=== PATIENT | female | born 1985 | race Caucasian/White ===

== ENCOUNTER 2017-07-07 17:01 | Emergency (ER) | payer OTHER, MEDICAID ==
[~2017-07-07] VITALS: Ht 167.6 cm; Wt 189.6 kg
[~2017-07-07 17:01] MED LIST: ACETAMINOPHEN-1 EAC1 PO; ACID CONTROL75 MG PO; ALBUTEROL2.5 MG/31 INH; ANTIVERT25 MG PO; BACTRIM DS TAB1 EAC1 PO; BENADRYL25 MG PO; BENTYL 20 MG TA20 M1 PO; BENTYL10 MG PO; BUSPIRONE HCL10 MG PO; DARVOCET-N 1001 EACH PO; FLEXERIL PO; HYDROCODONE-AP1 EAC6 PO; IBUPROFEN 800800 M1 PO; IMITREX4 MG/0.5 M SQ; INDOMETHACIN 2525 MG PO; IRON236 MG PO; LIDOCAINE VISC100 ML PO; MAGOX 400400 MG; MEDROLDOSEPACK PO; METFORMIN HCL500 MG PO; NAPROSYN250 MG PO; NAPROSYN375 MG PO; NOHOMEMEDICATIONS; NORCO 5-325 TA1 EACH PO; ONDANSETRON HCL4 M2 PO; PREDNISONE 20 M20 M1 PO; PREVACID 30MG C30 M1 PO; PROAIR HFA8.5 GM INH; PROMETHAZINE12.5 M1 PO; PROTONIX40 MG PO; RIZATRIPTAN10 MG PO; ROBAXIN 750 MG750 M1; SERTRALINE HCL25 M1 PO; TOPAMAX 100 MG100 MG; TRIAMCINOLONE A80 G2 TOP; TRINATE TABLET1 TAB; TRINATE TABLET1 TAB PO; VENTOLIN HFA 1818 GM; VENTOLIN HFA 1818 GM INH; VERAPAMIL E.R240 M1; VISTARIL 25 MG25 M1; VIT D3 PO; ZANTAC 150MG T150 MG PO; ZOFRAN ODT4 MG PO; ZPAK PO
[2017-07-07] MEDS ORDERED: ACETAMINOPHEN-1 EAC1 PO (18:18)
[2017-07-07] MEDS ORDERED: MOBIC15 MG PO (18:18)
[2017-07-07 18:50] VITALS: BP 142/62
== END 2017-07-07 18:51 | disposition home or self-care (01) ==
LOC: M.ERS 17:01
DX: M79.671 Pain in right foot (principal); M79.89 Other specified soft tissue disorders; K21.9 Gastro-esophageal reflux disease without esophagitis; M19.90 Unspecified osteoarthritis, unspecified site; F32.9 Major depressive disorder, single episode, unspecified; F41.9 Anxiety disorder, unspecified; G43.909 Migraine, unspecified, not intractable, without status migrainosus; E28.2 Polycystic ovarian syndrome; Z86.2 Personal history of diseases of the blood and blood-forming organs and certain disorders involving the immune mechanism; Z86.14 Personal history of Methicillin resistant Staphylococcus aureus infection

== ENCOUNTER 2017-07-24 22:30 | Emergency (ER) | payer OTHER, MEDICAID ==
[~2017-07-24] VITALS: Ht 167.6 cm; Wt 191.9 kg
[~2017-07-24 22:30] MED LIST changes: +MOBIC15 MG PO
[2017-07-24 23:32] LABS: ABSOLUTE BASOPHILS 0.1 thou/uL (0.0-0.2); ABSOLUTE EOSINOPHILS 0.1 thou/uL (0.0-0.7); ABSOLUTE LYMPHOCYTES 1.6 thou/uL (0.8-5.3); ABSOLUTE MONOCYTES 0.5 thou/uL (0.0-1.2); ABSOLUTE NEUTROPHILS 10.7 thou/uL (1.6-8.1); BASOPHILS 0.5 %; EOSINOPHILS 0.5 %; HEMATOCRIT 34.4 % (37.0-47.0); HEMOGLOBIN 11.2 gm/dL (12.0-15.0); LYMPHOCYTES 12.5 %; MCH 25.1 pg (26.0-34.0); MCHC 32.6 g/dL (28.0-37.0); MONOCYTES 3.7 %; MPV 8.3 fl. (7.2-11.1); NUCLEATED RBCS 0 /100WBC; PLATELET COUNT* 296 thou/uL (150-400); POLYS 82.8 %; RBC 4.46 mil/uL (4.20-5.00); RDW-CV 16.3 % (10.5-14.5); WBC 12.9 thou/uL (4.0-11.0)
[2017-07-24 23:34] LABS: URINE BILIRUBIN NEGATIVE (Negative); URINE BLOOD 3+ (Negative); URINE CLARITY CLEAR; URINE COLOR YELLOW; URINE GLUCOSE-RANDOM NEGATIVE (Negative); URINE KETONES NEGATIVE (Negative); URINE LEUKOCYTES-REFLEX NEGATIVE (Negative); URINE NITRITE-REFLEX NEGATIVE (Negative); URINE PROTEIN NEGATIVE (Negative); URINE SPECIFIC GRAVITY 1.015 (1.005-1.030); URINE UROBILINOGEN 0.2 E.U./dl (0.2-1.0)
[2017-07-24 23:41] LABS: ANION GAP 7 mmol/L (7-16); BUN 11 mg/dL (7-18); CALCIUM 8.8 mg/dL (8.5-10.1); CHLORIDE 104 mmol/L (98-107); CO2 28 mmol/L (21-32); CREATININE 0.8 mg/dL (0.6-1.3); GLUCOSE 139 mg/dL (70-99); POTASSIUM 4.5 mmol/L (3.5-5.1); SODIUM 139 mmol/L (136-145)
[2017-07-24 23:48] LABS: ALBUMIN 3.2 g/dL (3.4-5.0); ALKALINE PHOSPHATASE 87 U/L (46-116); LIPASE 108 U/L (73-393); SGOT 15 U/L (15-37); SGPT 25 U/L (30-65); TOTAL BILIRUBIN 0.2 mg/dL (<0.1-1.0); TROPONIN-I LEVEL <0.06 ng/mL (<0.06)
[2017-07-24 23:52] LABS: BACTERIA-REFLEX 1-9 Few /HPF (None Seen); CASTS None Seen /LPF (None Seen); CRYSTALS None Seen /LPF (None Seen); MUCUS 0-3 Light strn/LPF (None Seen); SQUAMOUS 0-3 Few /LPF (0-3); URINE RBC >20 Many /HPF (0-2); URINE WBC-REFLEX None Seen /HPF (0-5)
[2017-07-25] MEDS ORDERED: BENTYL 20 MG TA20 M1 PO (00:37)
[2017-07-25] MEDS ORDERED: ZOFRAN4 MG PO (00:37)
[2017-07-25] MEDS ORDERED: REGLAN 10 MG TA10 MG PO (00:37)
[2017-07-25] MEDS ORDERED: CARAFATE 1 GM TA1 GM PO (00:37)
[2017-07-25 01:01] VITALS: BP 149/63
--- NOTE | 2017-07-25 15:59 | EKG ---
[place] [address] ELECTROCARDIOGRAM REPORT Name: IRA CARRASCO Room: [facility]#: [id number] Admission: 07/24/17 Attend Phys: Discharge: 07/25/17 Date of : 87 Report #: [id number] THIS REPORT FOR: //name// [facility] ED Test Date: 2017-07-24 Test Time: 22:38:45 Pat Name: IRA LUNA Department: Room: Gender: F Analysis Consultant: VIRGILIO : 1985 Requested By: Fab May Order Number: [id number] MD: Isaias Thakur Measurements Intervals [place] Rate: 87 P: 31 MS: 172 QRS: 27 QRSD: 85 T: 0 QT: 350 QTc: 421 Interpretive Statements Sinus rhythm Probable left atrial enlargement Borderline ST elevation, lateral leads Compared to ECG 06/25/2016 01:18:16 ST (T wave) deviation now present Electronically Signed On 07-25-2017 15:59:45 CDT by Isaias Thakur [email or web address] <ELECTRONICALLY SIGNED> By: Isaias Thakur MD, FACC 07/25/17 1559 37 37 Isaias Thakur MD, [facility] /EPI
== END 2017-07-25 01:03 | disposition home or self-care (01) ==
LOC: M.ERS 22:30
PROVIDERS: Nurse Practitioner Family
DX: R07.89 Other chest pain (principal); R10.13 Epigastric pain; K21.9 Gastro-esophageal reflux disease without esophagitis; M19.90 Unspecified osteoarthritis, unspecified site; F32.9 Major depressive disorder, single episode, unspecified; F41.9 Anxiety disorder, unspecified; G43.909 Migraine, unspecified, not intractable, without status migrainosus; E28.2 Polycystic ovarian syndrome; Z86.14 Personal history of Methicillin resistant Staphylococcus aureus infection

== ENCOUNTER 2017-08-04 22:29 | Emergency (ER) | payer OTHER, MEDICAID ==
[~2017-08-04] VITALS: Ht 167.6 cm; Wt 191.9 kg
[~2017-08-04 22:29] MED LIST changes: +CARAFATE 1 GM TA1 GM PO; +REGLAN 10 MG TA10 MG PO; +ZOFRAN4 MG PO
[2017-08-04 23:18] LABS: ABSOLUTE BASOPHILS 0.1 thou/uL (0.0-0.2); ABSOLUTE EOSINOPHILS 0.2 thou/uL (0.0-0.7); ABSOLUTE LYMPHOCYTES 2.8 thou/uL (0.8-5.3); ABSOLUTE MONOCYTES 0.5 thou/uL (0.0-1.2); ABSOLUTE NEUTROPHILS 5.2 thou/uL (1.6-8.1); BASOPHILS 0.8 %; EOSINOPHILS 2.3 %; HEMATOCRIT 32.8 % (37.0-47.0); HEMOGLOBIN 10.7 gm/dL (12.0-15.0); MCH 24.9 pg (26.0-34.0); MCHC 32.5 g/dL (28.0-37.0); MCV 76.6 fL (80.0-100.0); MONOCYTES 5.7 %; MPV 8.2 fl. (7.2-11.1); NUCLEATED RBCS 0 /100WBC; PLATELET COUNT* 268 thou/uL (150-400); POLYS 59.2 %; RBC 4.29 mil/uL (4.20-5.00); RDW-CV 16.8 % (10.5-14.5); WBC 8.8 thou/uL (4.0-11.0)
[2017-08-04 23:48] LABS: ALBUMIN 3.3 g/dL (3.4-5.0); ALKALINE PHOSPHATASE 87 U/L (46-116); ANION GAP 11 mmol/L (7-16); BUN 9 mg/dL (7-18); CALCIUM 8.8 mg/dL (8.5-10.1); CHLORIDE 107 mmol/L (98-107); CO2 25 mmol/L (21-32); CREATININE 0.8 mg/dL (0.6-1.3); GLUCOSE 115 mg/dL (70-99); LIPASE 90 U/L (73-393); POTASSIUM 3.5 mmol/L (3.5-5.1); SGOT 15 U/L (15-37); SGPT 23 U/L (30-65); SODIUM 143 mmol/L (136-145); TOTAL BILIRUBIN 0.2 mg/dL (<0.1-1.0); TOTAL PROTEIN 6.9 g/dL (6.4-8.2); TROPONIN-I LEVEL <0.06 ng/mL (<0.06)
[2017-08-04 23:52] LABS: URINE BILIRUBIN NEGATIVE (Negative); URINE BLOOD 2+ (Negative); URINE CLARITY CLEAR; URINE COLOR YELLOW; URINE GLUCOSE-RANDOM NEGATIVE (Negative); URINE KETONES NEGATIVE (Negative); URINE LEUKOCYTES-REFLEX NEGATIVE (Negative); URINE NITRITE-REFLEX NEGATIVE (Negative); URINE PROTEIN NEGATIVE (Negative); URINE UROBILINOGEN 0.2 E.U./dl (0.2-1.0)
[2017-08-05 00:01] LABS: CASTS None Seen /LPF (None Seen); CRYSTALS None Seen /LPF (None Seen); MUCUS 0-3 Light strn/LPF (None Seen); SQUAMOUS 0-3 Few /LPF (0-3)
[2017-08-05 00:11] LABS: URINE WBC-REFLEX 0-5 Rare /HPF (0-5)
[2017-08-05] MEDS ORDERED: NORCO 5-325 TA1 EACH PO (01:11)
[2017-08-05 01:26] VITALS: BP 100/51
--- NOTE | 2017-08-05 11:01 | EKG ---
[place] [address] ELECTROCARDIOGRAM REPORT Name: IRA CARRASCO Room: [facility]#: [id number] Admission: 08/04/17 Attend Phys: Discharge: 08/05/17 Date of : [birth year] Report #: [id number] THIS REPORT FOR: //name// [facility] ED Test Date: 2017-08-05 Test Time: 00:09:25 Pat Name: IRA CARRASCO Department: Room: Gender: F General Warehouse Associate: VIRGILIO Burnette : 1985 Requested By: Cristo Timmons Order Number: [id number] MD: Mick Bourne Measurements Intervals [place] Rate: 83 P: 45 [place]: 172 QRS: 37 QRSD: 98 T: 10 QT: 366 QTc: 430 Interpretive Statements Sinus rhythm Compared to ECG 07/24/2017 22:38:45 no change Electronically Signed On 08-05-2017 11:01:25 CDT by Mick Bourne [email or web address] <ELECTRONICALLY SIGNED> By: Mick Bourne MD, [facility] 08/05/17 1101 0009 0009 Mick Bourne MD, FACC /EPI
== END 2017-08-05 01:26 | disposition home or self-care (01) ==
LOC: M.ERS 22:29
PROVIDERS: Emergency Medicine Emergency Medical Services
DX: R10.11 Right upper quadrant pain (principal); R10.13 Epigastric pain; K21.9 Gastro-esophageal reflux disease without esophagitis; M19.90 Unspecified osteoarthritis, unspecified site; F32.9 Major depressive disorder, single episode, unspecified; F41.9 Anxiety disorder, unspecified; E28.2 Polycystic ovarian syndrome; G43.909 Migraine, unspecified, not intractable, without status migrainosus; Z86.14 Personal history of Methicillin resistant Staphylococcus aureus infection

== ENCOUNTER 2018-01-14 22:54 | Emergency (ER) | payer OTHER, MEDICAID ==
[~2018-01-14] VITALS: Ht 167.6 cm; Wt 190.7 kg
[2018-01-14] MEDS ORDERED: OMEPRAZOLE40 MG PO (23:11)
[2018-01-14] MEDS ORDERED: RANITIDINE 150150 M1 PO (23:12)
[2018-01-14] MEDS ORDERED: ROBAXIN 750 MG750 M1 PO (23:14)
[2018-01-14] MEDS ORDERED: ZANTAC 150MG T150 MG PO (23:15)
[2018-01-14] MEDS ORDERED: TORADOL 10 MG T10 MG PO (23:56)
[2018-01-14] MEDS ORDERED: NORCO 5-325 TA1 EACH PO (23:56)
[2018-01-15 00:31] VITALS: BP 147/79
== END 2018-01-15 00:32 | disposition home or self-care (01) ==
LOC: M.ERS 22:54
DX: S39.012A Strain of muscle, fascia and tendon of lower back, initial encounter (principal); K21.9 Gastro-esophageal reflux disease without esophagitis; M19.90 Unspecified osteoarthritis, unspecified site; F32.9 Major depressive disorder, single episode, unspecified; F41.9 Anxiety disorder, unspecified; G43.909 Migraine, unspecified, not intractable, without status migrainosus; Z86.2 Personal history of diseases of the blood and blood-forming organs and certain disorders involving the immune mechanism; Z86.14 Personal history of Methicillin resistant Staphylococcus aureus infection; V89.2XXA Person injured in unspecified motor-vehicle accident, traffic, initial encounter; Y93.89 Activity, other specified; Y92.89 Other specified places as the place of occurrence of the external cause; Y99.8 Other external cause status

== ENCOUNTER → 2018-04-07 | Day surgery (SDC) | payer OTHER, MEDICAID ==
[~2018-04-07] MED LIST changes: +BUSPIRONE HCL7.5 MG PO; +OMEPRAZOLE40 MG PO; +RANITIDINE 150150 M1 PO; +ROBAXIN 750 MG750 M1 PO; +SERTRALINE HCL50 MG PO; +TORADOL 10 MG T10 MG PO; +VITAMIN D22000 UNIT PO; +ZANTAC300 MG PO
[2018-04-07 08:26] LABS: HEMATOCRIT 31.2 % (37.0-47.0); HEMOGLOBIN 10.1 gm/dL (12.0-15.0); MCH 24.1 pg (26.0-34.0); MCHC 32.5 g/dL (28.0-37.0); MCV 74.3 fL (80.0-100.0); MPV 7.9 fl. (7.2-11.1); RBC 4.2 mil/uL (4.20-5.00); WBC 7.4 thou/uL (4.0-11.0)
[2018-04-07 08:42] LABS: CALCIUM 8.2 mg/dL (8.5-10.1); CREATININE 0.8 mg/dL (0.6-1.3); POTASSIUM 4.2 mmol/L (3.5-5.1)
--- NOTE | 2018-04-07 13:50 | EKG ---
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
--- NOTE | 2018-04-10 17:07 | PATH ---
[facility] [address] [place] [address] PATHOLOGY RPT PROCEDURE Name: IRA CARRASCO [id number] Admission: 04/07/18 Date of : 87 Discharge: Report #: [id number] Path Case #: [id number] [facility] Accession Number: [id number] . 01 Material submitted: . GASTRIC BIOPSY FOR H-PYLORI . 01 Clinical history: . Upper abdominal pain, nausea, heartburn . 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 (GLORIA/db; 04/10/2018) LBQ/04/10/2018 . 02 Comment: Special stain: H. pylori immuno . 02 Electronically signed: . Vinayak Murphy MD, Pathologist NPI- [id number] . 01 Gross description: . Received in formalin labeled "Taurus, Ira, gastric BX for H. pylori," are 3 segments of tapia soft tissue measuring 0.9 x 0.6 x 0.2 cm in aggregate dimensions and ranging from 0.2 to 0.5 cm in maximum dimension. The specimen is submitted entirely in cassette A1. (TSD; 04/07/2018) TOB/TOB . 02 Pathologist provided ICD-10: K29.50 . 02 CPT . 003891, G88404 Specimen Comment: A courtesy copy of this report has been sent to Specimen Comment: [phone]. Specimen Comment: Report sent to Performed at: [address], [place] [id number] MD Lang Escalera MD Phone: [phone] Performed at: 02 [facility] [address], [place], [place] [id number] MD Vinayak Murphy MD Phone: [phone]
== END | disposition home or self-care (01) ==
LOC: M.SUR 06:34
PROVIDERS: Internal Medicine Gastroenterology
DX: K29.50 Unspecified chronic gastritis without bleeding (principal); K21.9 Gastro-esophageal reflux disease without esophagitis; G43.909 Migraine, unspecified, not intractable, without status migrainosus; F32.9 Major depressive disorder, single episode, unspecified; F41.9 Anxiety disorder, unspecified; Z79.899 Other long term (current) drug therapy; Z98.890 Other specified postprocedural states; Z86.73 Personal history of transient ischemic attack (TIA), and cerebral infarction without residual deficits

== ENCOUNTER 2018-11-28 14:37 | Emergency (ER) | payer OTHER, MEDICAID ==
[~2018-11-28] VITALS: Ht 167.6 cm; Wt 186.9 kg
[2018-11-28] MEDS ORDERED: CENTRUM SILVER1 EAC4 PO (14:47)
[2018-11-28] MEDS ORDERED: IRON325 PO (14:48)
[2018-11-28 15:24] LABS: ABSOLUTE BASOPHILS 0.1 thou/uL (0.0-0.2); ABSOLUTE EOSINOPHILS 0.2 thou/uL (0.0-0.7); ABSOLUTE LYMPHOCYTES 1.7 thou/uL (0.8-5.3); ABSOLUTE MONOCYTES 0.5 thou/uL (0.0-1.2); ABSOLUTE NEUTROPHILS 3.3 thou/uL (1.6-8.1); BASOPHILS 1.2 %; EOSINOPHILS 3.1 %; HEMATOCRIT 32.5 % (37.0-47.0); HEMOGLOBIN 10.6 gm/dL (12.0-15.0); LYMPHOCYTES 30.1 %; MCH 25.1 pg (26.0-34.0); MCHC 32.7 g/dL (28.0-37.0); MCV 76.7 fL (80.0-100.0); MONOCYTES 8.7 %; MPV 8.6 fl. (7.2-11.1); NUCLEATED RBCS 0 /100WBC; PLATELET COUNT* 251 thou/uL (150-400); POLYS 56.9 %; RBC 4.23 mil/uL (4.20-5.00); RDW-CV 17.8 % (10.5-14.5); WBC 5.8 thou/uL (4.0-11.0)
[2018-11-28 15:41] LABS: APTT 24.7 Seconds (25.0-31.3); PROTIME 10.6 Seconds (9.20-11.50)
[2018-11-28 15:42] LABS: ANION GAP 7 mmol/L (7-16); BUN 8 mg/dL (7-18); CALCIUM 8.6 mg/dL (8.5-10.1); CHLORIDE 106 mmol/L (98-107); CO2 28 mmol/L (21-32); CREATININE 0.8 mg/dL (0.6-1.3); GLUCOSE 112 mg/dL (70-99); POTASSIUM 3.8 mmol/L (3.5-5.1); SODIUM 141 mmol/L (136-145)
[2018-11-28 15:54] LABS: ALBUMIN 3.2 g/dL (3.4-5.0); ALKALINE PHOSPHATASE 92 U/L (46-116); CK-MB MASS 1.7 ng/mL (<0.5-3.6); LIPASE 79 U/L (73-393); NT-PRO BRAIN NAT PEPTIDE 111 pg/mL (<300); SGOT 21 U/L (15-37); SGPT 27 U/L (30-65); TOTAL BILIRUBIN 0.2 mg/dL (<0.1-1.0); TOTAL PROTEIN 6.5 g/dL (6.4-8.2); TROPONIN-I LEVEL <0.06 ng/mL (<0.06)
[2018-11-28] MEDS ORDERED: CYCLOBENZAPRINE5 MG PO (16:34)
[2018-11-28] MEDS ORDERED: NAPROSYN500 M1 PO (16:34)
[2018-11-28] MEDS ORDERED: NORCO 5-325 TA1 EAC1 PO (16:34)
[2018-11-28 16:46] VITALS: BP 104/43
--- NOTE | 2018-11-29 10:20 | EKG ---
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: : 1985 Requested By: Leonidas Adler Order Number: [id number] MD: Mick Bourne Measurements Intervals [place] Rate: 92 P: 15 [place]: 169 QRS: 21 QRSD: 91 T: 11 QT: 342 QTc: 424 Interpretive Statements Sinus rhythm Probable left atrial enlargement Baseline wander in lead(s) II Compared to ECG 04/07/2018 07:36:09 No significant changes Electronically Signed On 11-29-2018 10:19:56 CDT by Mick Bourne [email or web address] <ELECTRONICALLY SIGNED> By: Mick Bourne MD, [facility] 11/29/18 1019 1445 1445 Mick Bourne MD, [facility] /EPI
== END 2018-11-28 16:46 | disposition home or self-care (01) ==
LOC: M.ERS 14:37
PROVIDERS: Emergency Medicine
DX: R07.89 Other chest pain (principal); K21.9 Gastro-esophageal reflux disease without esophagitis; M19.90 Unspecified osteoarthritis, unspecified site; F32.9 Major depressive disorder, single episode, unspecified; F41.9 Anxiety disorder, unspecified; G43.909 Migraine, unspecified, not intractable, without status migrainosus; Z86.14 Personal history of Methicillin resistant Staphylococcus aureus infection; Z98.890 Other specified postprocedural states

== ENCOUNTER 2019-12-20 17:05 | Emergency (ER) | payer OTHER, MEDICAID ==
[~2019-12-20] VITALS: Ht 167.6 cm; Wt 113.4 kg
[~2019-12-20 17:05] MED LIST changes: +CENTRUM SILVER1 EAC4 PO; +CYCLOBENZAPRINE5 MG PO; +IRON325 PO; +NAPROSYN500 M1 PO; +NORCO 5-325 TA1 EAC1 PO
[2019-12-20] MEDS ORDERED: MAGNESIUM250 M1 PO (17:15)
[2019-12-20] MEDS ORDERED: VERAPAMIL ER120 MG PO (17:16)
[2019-12-20] MEDS ORDERED: SERTRALINE HCL100 MG PO (17:16)
[2019-12-20] MEDS ORDERED: NORCO 5-325 TA1 EAC2 PO (18:04)
[2019-12-20 18:18] VITALS: BP 120/70
--- NOTE | 2019-12-21 10:35 | EKG ---
[place] [address] ELECTROCARDIOGRAM REPORT Name: IRA CARRASCO [id number] Admission: 12/20/19 Attend Phys: Discharge: 12/20/19 Date of : 87 Date of Service: 12/20/19 1710 Report #: [id number] THIS REPORT FOR: //name// [facility] ED Test Date: 2019-12-20 Test Time: 17:10:57 Pat Name: IRA CARRASCO Department: Room: Gender: F Papier Mache Molder: : 1985 Requested By: Steven Tom Order Number: [id number] MD: Sawyer Rodriguez Measurements Intervals [place] Rate: 62 P: 53 [place]: 158 QRS: 34 QRSD: 107 T: 34 QT: 387 QTc: 393 Interpretive Statements Sinus rhythm Ventricular premature complex Baseline wander in lead(s) V3 Compared to ECG 11/28/2018 14:45:32 Ventricular premature complex(es) now present Electronically Signed On 12-21-2019 10:34:49 CDT by Sawyer Rodriguez [email or web address] <ELECTRONICALLY SIGNED> By: Sawyer Rodriguez MD, [facility] 12/21/19 1034 1710 1710 Sawyer Rodriguez MD, [facility] /EPI
== END 2019-12-20 18:18 | disposition home or self-care (01) ==
LOC: M.ERS 17:05
DX: M62.838 Other muscle spasm (principal); M25.511 Pain in right shoulder; K21.9 Gastro-esophageal reflux disease without esophagitis; M19.90 Unspecified osteoarthritis, unspecified site; G43.909 Migraine, unspecified, not intractable, without status migrainosus; Z98.890 Other specified postprocedural states; Z86.2 Personal history of diseases of the blood and blood-forming organs and certain disorders involving the immune mechanism; Z86.14 Personal history of Methicillin resistant Staphylococcus aureus infection

== ENCOUNTER 2019-12-27 17:36 | Inpatient (IN) | payer OTHER, MEDICAID ==
[~2019-12-27] VITALS: Ht 167.6 cm; Wt 113.8 kg
[~2019-12-27 17:36] MED LIST changes: +MAGNESIUM250 M1 PO; +NORCO 5-325 TA1 EAC2 PO; +SERTRALINE HCL100 MG PO; +VERAPAMIL ER120 MG PO
[2019-12-27 17:38] VITALS: BP 111/77
[2019-12-27 18:36] LABS: ABSOLUTE BASOPHILS 0.1 thou/uL (0.0-0.2); ABSOLUTE EOSINOPHILS 0.2 thou/uL (0.0-0.7); ABSOLUTE LYMPHOCYTES 2.3 thou/uL (0.8-5.3); ABSOLUTE MONOCYTES 0.5 thou/uL (0.0-1.2); ABSOLUTE NEUTROPHILS 3.6 thou/uL (1.6-8.1); BASOPHILS 0.8 %; EOSINOPHILS 2.4 %; HEMATOCRIT 35.7 % (37.0-47.0); HEMOGLOBIN 12.4 gm/dL (12.0-15.0); LYMPHOCYTES 35.3 %; MCH 29.2 pg (26.0-34.0); MCHC 34.8 g/dL (28.0-37.0); MCV 83.9 fL (80.0-100.0); MONOCYTES 6.9 %; NUCLEATED RBCS 0 /100WBC; PLATELET COUNT* 220 thou/uL (150-400); POLYS 54.6 %; RBC 4.25 mil/uL (4.20-5.00); RDW-CV 14.8 % (10.5-14.5); WBC 6.5 thou/uL (4.0-11.0)
[2019-12-27 18:44] LABS: INR 1.1
[2019-12-27 18:50] LABS: CALCIUM 8.4 mg/dL (8.5-10.1); CREATININE 0.7 mg/dL (0.6-1.3); POTASSIUM 3.4 mmol/L (3.5-5.1)
[2019-12-27 18:55] LABS: ALBUMIN 3.2 g/dL (3.4-5.0); TOTAL BILIRUBIN 0.3 mg/dL (<0.1-1.0); TOTAL PROTEIN 6.4 g/dL (6.4-8.2)
[2019-12-27 21:15] VITALS: BP 105/57
[2019-12-28] VITALS: BP 91/74
[2019-12-28 01:19] LABS: CHOLESTEROL 115 mg/dL (<200); HDL CHOLESTEROL 28 mg/dL (>40); LDL CHOLESTEROL 71 mg/dL (<100); TC:HDL 4.1 Ratio (Not establshd); TRIGLYCERIDE 81 mg/dL (<150); VLDL 16 mg/dL (<40)
[2019-12-28 01:20] LABS: SERUM ASSESSMENT CLEAR
[2019-12-28 04:00] VITALS: BP 133/74
[2019-12-28 08:00] VITALS: BP 113/64
--- NOTE | 2019-12-28 10:10 | EKG ---
[place] [address] ELECTROCARDIOGRAM REPORT Name: IRA CARRASCO Room: [address] ADM IN .R.#: [id number] Admission: 12/28/19 Attend Phys: Rich Atkins Discharge: Date of : 87 Date of Service: 12/27/19 182 Report #: [id number] THIS REPORT FOR: //name// [facility] ED Test Date: 2019-12-27 Test Time: 18:21:57 Pat Name: IRA CARRASCO Department: Room: [facility] Gender: F Chief Of Staff: LEEANN : 1985 Requested By: Cristo Timmons Order Number: [id number] MD: Mick Bourne Measurements Intervals [place] Rate: 66 P: 34 [place]: 184 QRS: 30 QRSD: 91 T: 22 QT: 387 QTc: 406 Interpretive Statements Sinus rhythm Compared to ECG 12/20/2019 17:10:57 Ventricular premature complex(es) no longer present Electronically Signed On 12-28-2019 10:10:47 CDT by Mick Bourne [email or web address] <ELECTRONICALLY SIGNED> By: Mick Bourne MD, [facility] 12/28/19 1010 1821 1821 Mick Bourne MD, [facility] /EPI
[2019-12-28] MEDS ORDERED: MAGNESIUM250 M1 PO (13:18)
[2019-12-28] MEDS ORDERED: IRON325 M1 PO (13:19)
[2019-12-28] MEDS ORDERED: FLEXERIL PO (13:29)
[2019-12-28] MEDS ORDERED: ONDANSETRON HCL4 M2 PO (13:30)
[2019-12-28] MEDS ORDERED: TRANSDERM-SCOP1 EACH TRANSDERM (13:30)
--- NOTE | 2019-12-28 15:44 | 2DMMODE ---
[place] [address] 2 D/M-MODE ECHOCARDIOGRAM Name: IRA CARRASCO Room: [address] IN .R.#: [id number] Admission: 12/28/19 Attend Phys: Rich Atkins Discharge: Date of : 87 Date of Service: 12/28/19 1544 Report #: [id number] THIS REPORT FOR: cc: Fransisca Reyes Michelle RNP Blick, David R. MD [facility] ~ APPROVED REPORT Study performed: 12/28/2019 11:20:54 EXAM: Comprehensive 2D, Doppler, and color-flow Echocardiogram Patient Location: Bedside BSA: 2.16 HR: 60 bpm BP: 113/64 mmHg Other Information Study Quality: Adequate Indications CVA/TIA Echo Enhancing Agent Indication: Rule out Shunt Agent(s) / Amount(s) Used: Definity cc 2D Dimensions IVSd: 12.05 (7-11mm) LVOT Diam: 18.33 (18-24mm) LVDd: 43.19 mm PWd: 10.62 (7-11mm) Ascending Ao: 25.31 (22-36mm) LVDs: 34.13 (25-40mm) Aortic Root: 28.32 mm Volumes Left Atrial Volume (Systole) LA ESV Index: 22.90 mL/m2 Aortic Valve AoV Peak Nestor.: 1.34 m/s AO Peak Gr.: 7.14 mmHg LVOT Max P.93 mmHg AO Mean Gr.: 4.06 mmHg LVOT Mean P.77 mmHg LVOT Max V: 1.22 m/s AO V2 VTI: 26.56 cm LVOT Mean V: 0.76 m/[place] [address] 2 D/M-MODE ECHOCARDIOGRAM Name: IRA CARRASCO Room: [address] IN M.R.#: [id number] Admission: 12/28/19 Attend Phys: Rich Atkins Discharge: Date of : 87 Date of Service: 12/28/19 1544 Report #: [id number] OMAR (VTI): 2.51 cm2 LVOT V1 VTI: 25.29 cm Mitral Valve E/A Ratio: 1.08 MV Decel. Time: 248.63 ms MV E Max Nestor.: 0.63 m/s MV PHT: 72.10 ms MVA (PHT): 3.05 cm2 TDI E/Lateral E': 3.94 E/Medial E': 5.73 Medial E' Nestor.: 0.11 m/s Lateral E' Nestor.: 0.16 m/s Pulmonary Valve PV Peak Nestor.: 0.86 m/s PV Peak Gr.: 2.97 mmHg Tricuspid Valve RAP Estimate: 5.00 mmHg TR Peak Gr.: 10.67 mmHg RVSP: 15.67 mmHg PA Pressure: 15.67 mmHg Left Ventricle The left ventricle is normal size. There is normal LV segmental wall motion. There is normal left ventricular wall thickness. Left ventricular systolic function is normal. The left ventricular ejection fraction is within the normal range. LVEF is 50-55%. Right Ventricle The right ventricle is normal size. The right ventricular systolic function is normal. Atria The left atrium size is normal. Injection of bubbles documented no interatrial shunt. The right atrium size is normal. Aortic Valve The aortic valve is normal in structure. No aortic regurgitation is present. There is no aortic valvular stenosis. Mitral Valve The mitral valve is normal in structure. There is no mitral valve regurgitation noted. No evidence of mitral valve stenosis. Tricuspid Valve The tricuspid valve is normal in structure[place] [address] 2 D/M-MODE ECHOCARDIOGRAM Name: IRA CARRASCO Room: [address] IN ..#: [id number] Admission: 12/28/19 Attend Phys: Rich Atkins Discharge: Date of : 87 Date of Service: 12/28/19 1544 Report #: [id number] regurgitation. Pulmonic Valve Pulmonic valve is not well visualized. There is no pulmonic valvular regurgitation. Great Vessels The aortic root is normal in size. IVC is not well visualized. Pericardium There is no pericardial effusion. <Conclusion> Left ventricular systolic function is normal. The left ventricular ejection fraction is within the normal range. Injection of bubbles documented no interatrial shunt. <ELECTRONICALLY SIGNED> By: Mick Bourne MD, FACC 12/28/19 1544 1544 1544 Mick Bourne MD, FACC /INF
[2019-12-28 16:00] VITALS: BP 105/65
[2019-12-28] MEDS ORDERED: BARIATRIC MV-I1 EACH PO (19:04)
[2019-12-28] MEDS ORDERED: MECLIZINE HCL25 M1 PO (19:05)
[2019-12-28] MEDS ORDERED: VITAMIN D350 MC3 PO (19:05)
[2019-12-28] MEDS ORDERED: LORATIDINE 10 M10 M1 PO (19:07)
[2019-12-28] MEDS ORDERED: IMITREX 6M6 MG/0.5 M SUBQ (19:07)
[2019-12-28 19:25] VITALS: BP 119/59
[2019-12-28 23:45] VITALS: BP 115/58
[2019-12-29 02:06] LABS: GLYCOHEMOGLOBIN (HGB A1C) 4.8 % (4.8-5.6)
[2019-12-29 04:06] VITALS: BP 107/50
[2019-12-29 05:33] LABS: HEMATOCRIT 33.3 % (37.0-47.0); HEMOGLOBIN 11.7 gm/dL (12.0-15.0); MCH 29.1 pg (26.0-34.0); RBC 4.01 mil/uL (4.20-5.00); RDW-CV 14.7 % (10.5-14.5); WBC 6.4 thou/uL (4.0-11.0)
[2019-12-29 05:44] LABS: CALCIUM 8.4 mg/dL (8.5-10.1); CREATININE 0.7 mg/dL (0.6-1.3); MAGNESIUM 1.9 mg/dL (1.8-2.4); POTASSIUM 3.7 mmol/L (3.5-5.1)
[2019-12-29 08:00] VITALS: BP 103/67
[2019-12-29] MEDS ORDERED: ASPIRIN EC81 M1 PO (08:03)
[2019-12-29] MEDS ORDERED: PREDNISONE 20 M20 M1 PO (08:03)
[2019-12-29] MEDS ORDERED: FOLIC ACID1 MG PO (08:03)
[2019-12-29 08:14] VITALS: BP 103/67
--- NOTE | 2019-12-29 10:17 | CON ---
[facility] [address] [place] [address] CONSULTATION Name: IRA CARRASCO Room: [address] IN .R.#: [id number] Admission: 12/28/19 Attend Phys: Verito Dalton Discharge: Date of : 87 Report #: [id number] THIS REPORT FOR: //name// cc: Fransisca Reyes Michelle RNP ~ THIS REPORT FOR: //name// CC: Fransisca Reyes FURNACE COMBINATION ANALYST Rich Atkins DATE OF SERVICE: 12/28/2019 CARDIOLOGY CONSULTATION HISTORY OF PRESENT ILLNESS: The patient is a 34-year-old white female who I was asked to see in the hospital after she had an elevated troponin. The patient has no previous history of heart disease. She stays very active. She does have a history of morbid obesity and previously weighed 428 pounds and she is 5 feet 6. She apparently had bariatric surgery at [facility] in 01/2019 with gastric bypass. She has done well since that time. She does note in 2016 she had some slurred speech and weakness of the left side. She is felt to have a TIA. She was not placed on any medications. She was doing well until yesterday. She awakened at 4 in the morning and had a sharp pain in her right arm and leg. 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 She then felt numbness of her leg and arm. She went home, felt weak. She was having to limp. She called an ambulance and brought here to [place] and admitted. She was noted to have an abnormal troponin. Cardiology consultation requested. She denies any chest pain, shortness of breath, diaphoresis, nausea, fever or cough. She denied any trauma to her chest. She noticed some weakness of the right arm. PAST MEDICAL HISTORY: Otherwise, she has had previous cholecystectomy. No history of hypertension, diabetes, hyperlipidemia. MEDICATIONS: Include BuSpar, verapamil for migraine headaches, sertraline, vitamin. ALLERGIES: She has no known drug allergies. FAMILY HISTORY: Father had atrial fibrillation. SOCIAL HISTORY: She is . She and her live in [place]. No smoking. Rarely drinks alcohol. No illicit drug use. REVIEW OF SYSTEMS: She was tested for sleep apnea because she snores, but apparently was negative. She has had no history of liver disease, [place] [address] CONSULTATION Name: IRA CARRASCO Room: [address]#: [id number] Admission: 12/28/19 Attend Phys: Verito Dalton Discharge: Date of : 87 Report #: [id number] disease or cancer. She has a history of anxiety and sees a psychiatrist. PHYSICAL EXAMINATION: GENERAL: Revealed a young white female, lying in bed. She appeared in no distress. VITAL SIGNS: Blood pressure 130/70, pulse 70. She is afebrile. HEENT: Pupils was anicteric. Conjunctivae pink. Mucous membranes moist. NECK: Veins difficult to assess due to obesity. No carotid bruits. Neck supple. CHEST: Clear to auscultation. CARDIOVASCULAR: Regular rate and rhythm without murmur. ABDOMEN: Obese. EXTREMITIES: Had no edema. Dorsalis pedis pulse 1+ bilaterally. SKIN: Cool and dry. NEUROLOGIC: Nonfocal. RADIOLOGICAL DATA: ECG showed a sinus rhythm, early repolarization. Her workup so far: X-rays, she had a CT scan of the head performed without contrast that showed no acute abnormalities. Chest x-ray, normal heart size, clear lung lombardo. LABORATORY DATA: Sodium 139, creatinine 0.7. Liver function studies were normal. Troponins were all 0.06. Her white blood cell count 6.5, hemoglobin 12.4. IMPRESSION AND RECOMMENDATIONS: 1. Pain in her right arm and leg. Possible neuropathy. 2. History of obesity with previous gastric bypass surgery. 3. History of anxiety. 4. Previous transient ischemic attack. Recommend no further cardiac evaluation. <ELECTRONICALLY SIGNED> By: Mick Bourne MD, FACC 12/29/19 1017 1218 1247Damaddie Bourne MD, FACC /nt
[2019-12-29 11:17] VITALS: BP 103/67
== END 2019-12-29 11:00 | disposition home or self-care (01) | DRG 74 ==
LOC: M.ERS 17:36 → M.TBA-ER 20:21 → M.2W 21:30
PROVIDERS: Emergency Medicine Emergency Medical Services; Internal Medicine; Personal Emergency Response Attendant; ADMIT Internal Medicine; ATTEND Internal Medicine
DX: G62.9 Polyneuropathy, unspecified (principal); M19.90 Unspecified osteoarthritis, unspecified site; K21.9 Gastro-esophageal reflux disease without esophagitis; F41.9 Anxiety disorder, unspecified; F32.9 Major depressive disorder, single episode, unspecified; G43.909 Migraine, unspecified, not intractable, without status migrainosus; R20.2 Paresthesia of skin; R79.89 Other specified abnormal findings of blood chemistry; M79.601 Pain in right arm; M79.604 Pain in right leg; I65.21 Occlusion and stenosis of right carotid artery; Z20.828 Contact with and (suspected) exposure to other viral communicable diseases; Z79.899 Other long term (current) drug therapy; Z98.891 History of uterine scar from previous surgery; Z90.49 Acquired absence of other specified parts of digestive tract; Z86.73 Personal history of transient ischemic attack (TIA), and cerebral infarction without residual deficits

== ENCOUNTER 2020-01-22 09:59 | Emergency (ER) | payer OTHER, MEDICAID ==
[~2020-01-22] VITALS: Ht 167.6 cm; Wt 110.7 kg
[~2020-01-22 09:59] MED LIST changes: +ASPIRIN EC81 M1 PO; +BARIATRIC MV-I1 EACH PO; +FOLIC ACID1 MG PO; +IMITREX 6M6 MG/0.5 M SUBQ; +IRON325 M1 PO; +LORATIDINE 10 M10 M1 PO; +MECLIZINE HCL25 M1 PO; +TRANSDERM-SCOP1 EACH TRANSDERM; +VITAMIN D350 MC3 PO
[2020-01-22 10:30] LABS: ABSOLUTE EOSINOPHILS 0.1 thou/uL (0.0-0.7); ABSOLUTE LYMPHOCYTES 1.8 thou/uL (0.8-5.3); ABSOLUTE MONOCYTES 0.4 thou/uL (0.0-1.2); ABSOLUTE NEUTROPHILS 3.7 thou/uL (1.6-8.1); BASOPHILS 0.7 %; EOSINOPHILS 2.1 %; HEMATOCRIT 36.6 % (37.0-47.0); HEMOGLOBIN 12.4 gm/dL (12.0-15.0); LYMPHOCYTES 29.6 %; MCH 28.5 pg (26.0-34.0); MCHC 33.8 g/dL (28.0-37.0); MCV 84.3 fL (80.0-100.0); MPV 9.2 fl. (7.2-11.1); NUCLEATED RBCS 0 /100WBC; PLATELET COUNT* 241 thou/uL (150-400); POLYS 60.6 %; RBC 4.34 mil/uL (4.20-5.00); RDW-CV 14.4 % (10.5-14.5); WBC 6.1 thou/uL (4.0-11.0)
[2020-01-22 10:38] LABS: CALCIUM 8.2 mg/dL (8.5-10.1); CREATININE 0.6 mg/dL (0.6-1.3); POTASSIUM 3.7 mmol/L (3.5-5.1)
[2020-01-22 10:43] LABS: ALBUMIN 3.4 g/dL (3.4-5.0); TOTAL BILIRUBIN 0.3 mg/dL (<0.1-1.0); TOTAL PROTEIN 6.9 g/dL (6.4-8.2)
[2020-01-22 11:44] LABS: URINE BILIRUBIN NEGATIVE (Negative); URINE BLOOD NEGATIVE (Negative); URINE CLARITY CLEAR; URINE COLOR YELLOW; URINE GLUCOSE-RANDOM NEGATIVE (Negative); URINE KETONES NEGATIVE (Negative); URINE LEUKOCYTES-REFLEX NEGATIVE (Negative); URINE NITRITE-REFLEX NEGATIVE (Negative); URINE PROTEIN NEGATIVE (Negative); URINE SPECIFIC GRAVITY 1.015 (1.005-1.030); URINE UROBILINOGEN 0.2 E.U./dl (0.2-1.0)
[2020-01-22] MEDS ORDERED: PRENATAL PO (14:43)
[2020-01-22 14:53] VITALS: BP 133/70
== END 2020-01-22 14:53 | disposition home or self-care (01) ==
LOC: M.ERS 09:59
PROVIDERS: Physician Assistant
DX: O26.891 Other specified pregnancy related conditions, first trimester (principal); R10.32 Left lower quadrant pain; R10.84 Generalized abdominal pain; M19.90 Unspecified osteoarthritis, unspecified site; O99.611 Diseases of the digestive system complicating pregnancy, first trimester; O99.351 Diseases of the nervous system complicating pregnancy, first trimester; Z86.2 Personal history of diseases of the blood and blood-forming organs and certain disorders involving the immune mechanism; Z3A.01 Less than 8 weeks gestation of pregnancy; Z98.890 Other specified postprocedural states

== ENCOUNTER 2020-02-09 22:27 | Emergency (ER) | payer OTHER, MEDICAID ==
[~2020-02-09] VITALS: Ht 167.6 cm; Wt 111.1 kg
[~2020-02-09 22:27] MED LIST changes: +PRENATAL PO
[2020-02-09 23:11] LABS: URINE BILIRUBIN NEGATIVE (Negative); URINE BLOOD NEGATIVE (Negative); URINE CLARITY CLEAR; URINE COLOR YELLOW; URINE GLUCOSE-RANDOM NEGATIVE (Negative); URINE KETONES NEGATIVE (Negative); URINE LEUKOCYTES-REFLEX NEGATIVE (Negative); URINE NITRITE-REFLEX NEGATIVE (Negative); URINE PROTEIN NEGATIVE (Negative); URINE UROBILINOGEN 0.2 E.U./dl (0.2-1.0)
[2020-02-10 00:35] VITALS: BP 138/72
== END 2020-02-10 00:36 | disposition home or self-care (01) ==
LOC: M.ERS 22:27
PROVIDERS: Personal Emergency Response Attendant
DX: O26.891 Other specified pregnancy related conditions, first trimester (principal); R10.2 Pelvic and perineal pain; O99.611 Diseases of the digestive system complicating pregnancy, first trimester; O99.351 Diseases of the nervous system complicating pregnancy, first trimester; Z86.14 Personal history of Methicillin resistant Staphylococcus aureus infection; Z86.2 Personal history of diseases of the blood and blood-forming organs and certain disorders involving the immune mechanism; Z3A.01 Less than 8 weeks gestation of pregnancy

== ENCOUNTER 2020-04-19 22:08 | Emergency (ER) | payer OTHER, MEDICAID ==
[~2020-04-19] VITALS: Ht 167.6 cm; Wt 108.0 kg
[2020-04-19 22:33] LABS: ABSOLUTE EOSINOPHILS 0.1 thou/uL (0.0-0.7); ABSOLUTE LYMPHOCYTES 2.5 thou/uL (0.8-5.3); ABSOLUTE MONOCYTES 0.6 thou/uL (0.0-1.2); ABSOLUTE NEUTROPHILS 5.7 thou/uL (1.6-8.1); BASOPHILS 0.4 %; HEMATOCRIT 34.6 % (37.0-47.0); LYMPHOCYTES 27.9 %; MCH 30.6 pg (26.0-34.0); MCHC 34.7 g/dL (28.0-37.0); MCV 88.1 fL (80.0-100.0); MONOCYTES 6.8 %; NUCLEATED RBCS 0 /100WBC; PLATELET COUNT* 190 thou/uL (150-400); POLYS 63.9 %; RBC 3.92 mil/uL (4.20-5.00); RDW-CV 16.3 % (10.5-14.5); WBC 8.9 thou/uL (4.0-11.0)
[2020-04-19 22:41] LABS: CALCIUM 8.2 mg/dL (8.5-10.1); CREATININE 0.6 mg/dL (0.6-1.3); POTASSIUM 3.5 mmol/L (3.5-5.1)
[2020-04-19 22:46] LABS: ALBUMIN 2.9 g/dL (3.4-5.0); TOTAL BILIRUBIN 0.4 mg/dL (<0.1-1.0); TOTAL PROTEIN 6.4 g/dL (6.4-8.2)
[2020-04-19 23:14] LABS: URINE BILIRUBIN NEGATIVE (Negative); URINE BLOOD 1+ (Negative); URINE CLARITY CLEAR; URINE COLOR YELLOW; URINE GLUCOSE-RANDOM NEGATIVE (Negative); URINE KETONES TRACE (Negative); URINE LEUKOCYTES-REFLEX TRACE (Negative); URINE PROTEIN NEGATIVE (Negative)
[2020-04-19 23:16] LABS: URINE NITRITE-REFLEX POSITIVE (Negative)
[2020-04-19 23:23] LABS: AMP/METHAMP Negative (Negative); BARBITURATES Negative (Negative); BENZODIAZEPINES Negative (Negative); COCAINE Negative (Negative); METHADONE Negative (Negative); OPIATES Negative (Negative); PCP Negative (Negative); THC Negative (Negative)
[2020-04-19 23:39] LABS: SQUAMOUS 4-10 Moderate /LPF (0-3)
[2020-04-19 23:40] LABS: CASTS None Seen /LPF (None Seen); URINE WBC-REFLEX >25 Many /HPF (0-5)
[2020-04-19 23:41] LABS: BACTERIA-REFLEX >30 Many /HPF (None Seen); CRYSTALS None Seen /LPF (None Seen); URINE RBC 0-2 Rare /HPF (0-2)
[2020-04-20] MEDS ORDERED: PEPCID20 MG PO (01:43)
[2020-04-20] MEDS ORDERED: CARAFATE 1 GM TA1 GM PO (01:43)
[2020-04-20] MEDS ORDERED: KEFLEX500 M1 PO (01:44)
[2020-04-20 01:51] VITALS: BP 119/62
== END 2020-04-20 01:51 | disposition home or self-care (01) ==
LOC: M.ERS 22:08
PROVIDERS: Emergency Medicine
DX: O26.892 Other specified pregnancy related conditions, second trimester (principal); R10.13 Epigastric pain; K21.9 Gastro-esophageal reflux disease without esophagitis; G43.909 Migraine, unspecified, not intractable, without status migrainosus; Z79.899 Other long term (current) drug therapy; Z3A.17 17 weeks gestation of pregnancy; Z20.828 Contact with and (suspected) exposure to other viral communicable diseases

== ENCOUNTER 2020-05-12 02:00 | Emergency (ER) | payer OTHER, MEDICAID ==
[~2020-05-12] VITALS: Ht 167.6 cm; Wt 110.2 kg
[~2020-05-12 02:00] MED LIST changes: +KEFLEX500 M1 PO; +PEPCID20 MG PO
[2020-05-12 02:31] LABS: URINE BILIRUBIN NEGATIVE (Negative); URINE BLOOD NEGATIVE (Negative); URINE CLARITY CLEAR; URINE COLOR YELLOW; URINE GLUCOSE-RANDOM NEGATIVE (Negative); URINE KETONES NEGATIVE (Negative); URINE LEUKOCYTES-REFLEX NEGATIVE (Negative); URINE NITRITE-REFLEX NEGATIVE (Negative); URINE PROTEIN NEGATIVE (Negative); URINE SPECIFIC GRAVITY >= 1.030 (1.005-1.030)
[2020-05-12 02:43] LABS: AMP/METHAMP Negative (Negative); BARBITURATES Negative (Negative); BENZODIAZEPINES Negative (Negative); COCAINE Negative (Negative); METHADONE Negative (Negative); OPIATES Negative (Negative); PCP Negative (Negative); THC Negative (Negative)
[2020-05-12 05:28] VITALS: BP 130/84
== END 2020-05-12 05:25 | disposition home or self-care (01) ==
LOC: M.ERS 02:00
PROVIDERS: Personal Emergency Response Attendant
DX: O99.282 Endocrine, nutritional and metabolic diseases complicating pregnancy, second trimester (principal); O26.892 Other specified pregnancy related conditions, second trimester; R10.2 Pelvic and perineal pain; O99.612 Diseases of the digestive system complicating pregnancy, second trimester; O99.352 Diseases of the nervous system complicating pregnancy, second trimester; O99.112 Other diseases of the blood and blood-forming organs and certain disorders involving the immune mechanism complicating pregnancy, second trimester; Z3A.21 21 weeks gestation of pregnancy; Z79.899 Other long term (current) drug therapy